=== PATIENT | male | born 1975 | race Caucasian/White ===

== ENCOUNTER → 2018-03-06 | Day surgery (SDC) | payer OTHER ==
--- NOTE | 2018-03-05 19:22 | History and Physical ---
History & Physical Date Mar 05, 2018. Chief Complaint right elbow pain History of Present Illness The patient is a 43 year old male with complaints of right elbow pain after a fall from his truck while at work on 02.26.18. He fell onto an outstretched right hand. He had elbow pain and later x-rays that noted an intra-articular radial head fx. A CT later confirmed a comminuted intra-articular fx. He was placed into a hinged elbow brace locked in 90 degrees and was referred for surgical tx. Past Medical/Surgical History Past medical hx: HTN, high cholesterol, Sleep apnea, Acid reflux, Obesity, hx of kidney stones Past surgical hx: right knee surgery in 2015, lumbar laminectomy/discectomy 1999 Social hx: Denies tobacco use, ~3 alcoholic drinks per week. Allergies Coded Allergies: Penicillins (Unverified Allergy, Unknown, UNKNOWN - CHILDHOOD ALLERGY, ) Ondansetron (Verified Adverse Reaction, Unknown, CAN'T SLEEP FOR 3 DAYS, ) Home Medications Scheduled Fish Oil (Calvin-3), 1 CAP PO QAM Hydrochlorothiazide (Hctz), 25 MG PO QAM Lisinopril (Zestril), 10 MG PO QAM Magnesium Oxide (Mg Supplement (Magnesium), 500 MG PO QAM Multivitamin (Multivitamin), 1 TAB PO QAM Omeprazole (Prilosec), 20 MG PO QAM Paroxetine (Paxil), 20 MG PO HS Rosuvastatin Calcium (Crestor), 20 MG PO QAM Scheduled PRN Oxycodone/Acetaminophen 5MG/325MG (Percocet 5MG/325MG), 1-2 TABLETS PO Q4-6H PRN for Pain Physical Examination Skin: warm/dry, no rash Eyes: normal inspection ENT: normal ENT inspection Head: normocephalic, atraumatic Neck: supple, no adenopathy, trachea midline Respiratory/Chest: lungs clear, normal breath sounds, no respiratory distress Cardiovascular: regular rate, rhythm Abdomen / GI: normal bowel sounds, non tender Extremities: + pertinent finding (Right elbow: + swelling. Tender at the radial head. No strength testing or ROM performed. NV intact RUE.) Neurologic/Psych: no motor/sensory deficits, alert, oriented x 3 Diagnosis Right elbow Intra-articular comminuted radial head fx. Right elbow coronoid process of ulna fx. Plan of Treatment Recommend an ORIF right radial head fx vs. right radial head replacement, possible closed tx coronoid process of ulna fx vs. excision of fx fragment. All potential risks, benefits, complications, alternatives, and rehab have been discussed and the patient wishes to proceed. The patient will be scheduled for 03.06.18.
[~2018-03-06] MED LIST: ACETAMINOPHEN 325 MG TAB PO PRN; ATROPINE SULFATE 0.1 MG/ML 5ML SYR IV PRN; BACITRACIN 50000 UNIT VIAL ONE; CEFAZOLIN SOD 2000MG/15 ML IV PUSH IV ONE; EpHEDrine SULFATE INJ 50 MG/ML AMP IV PRN; FENTANYL CITRATE INJ 50 MCG/1 ML 2 ML VIAL IV PRN; FENTANYL CITRATE INJ 50 MCG/1 ML 2 ML VIAL ONE; GLYCOPYRROLATE INJ 0.2 MG/ML VIAL ONE; HYDR25TA4 PO; HYDROmorphone INJ 0.5 MG/0.5 ML SYR IV PRN; KETAMINE HCL INJ 50 MG/ML 10 ML VIAL ONE; KETOROLAC TROMETHAMINE 15 MG/ML VIAL IV. PRN; LACTATED RINGER'S 1000ML 1,000 ML IV SCH; LIDOCAINE HCL 2% 2 ML VIAL (20MG/ML) ONE; LISI-461 PO; MAGN500T4 PO; MIDAZOLAM HCL 1 MG/ML 2ML VIAL ONE; MULT-506 PO; MoRPHine SULFATE 2 MG/ML CARP IV PRN; NEOSTIGMINE METHYLSULFATE 5 MG/5 ML SYR ONE; NURSING VERBAL MED ORDER ONE; OMEG10007 PO; OXYC-57 PO; OXYCODONE HCL IR 5 MG TAB (IMMEDIATE RELEASE) PO PRN; PARO1TAB27 PO; PHENYLEPHRINE 100MCG/ML 5ML SYR IV PRN; PRLSR20 PO; PROPOFOL IV EMULSION 10 MG/ML 20 ML VIAL IV ONE; ROCURONIUM BROMIDE 10 MG/ML 5 ML VIAL IV ONE; ROPIVACAINE 0.5% 5 MG/ML 30 ML VIAL ONE; ROSU20TA PO
[2018-03-06 10:10] VITALS: BP 141/91; PULSE 94; TEMP 36.3; O2SAT 98
--- NOTE | 2018-03-06 13:05 | History & Physical Bridge Note ---
H&P Re-Evaluation Bridge Note: I have examined the patient, reviewed the History & Physical and in the interval since the performance of the History & Physical I have noted the following changes of clinical significance: No changes noted
--- NOTE | 2018-03-06 15:51 | [facility] Post Operative Brief Note ---
Immediate Operative Summary Operative Date Mar 06, 2018. Pre-Operative Diagnosis Right elbow Intra-articular comminuted displaced radial head fracture. Right elbow coronoid process of ulna fracture. Post-Operative Diagnosis Right elbow Intra-articular comminuted displaced radial head fracture. Right elbow coronoid process of ulna fracture. Procedure(s) Performed Right Elbow [employer] Expl[employer] [id number] Radial Head Replacement Right Elbow Resection of Avulsion fracture coronoid process Surgeon Dr. Rainer Nazario Reimbursement Analyst Surgeon(s) Franko Bueno PA-C Estimated Blood Loss 5cc Findings Consistent with Post-Op Diagnosis Specimens a. Radial Head Drains None Anesthesia Type General Regional Complication(s) none Disposition Accompanied Pt To Recover: no Disposition: Recovery Room / PACU
--- NOTE | 2018-03-06 15:53 | DIAGNOSTIC IMAGING REPORT ---
R ELBOW 2 VIEWS HISTORY: 43 years-old Male RT ORIF VS RADIAL HEAD REPLACEMENT status post surgery of the right radial head. COMPARISON: None available TECHNIQUE: 2 spot fluoroscopic images of the right elbow were obtained utilizing 33.5 seconds fluoroscopy time FINDINGS: Images demonstrate interval placement of a prosthetic radial head which demonstrates satisfactory alignment. No periprosthetic fracture or retained foreign body. Expected postsurgical soft tissue swelling and deep tissue air about the lateral right elbow. IMPRESSION: Prosthetic radial head with satisfactory alignment. The above report was generated using voice recognition software. It may contain grammatical, syntax or spelling errors. Electronically signed by: Keith Tristan M.D. 03/06/2018 3:51 PM Dictated Date/Time: 03/06/2018 3:50 PM
--- NOTE | 2018-03-06 16:21 | Discharge Instructions ---
Discharge Instructions Date of Service Mar 06, 2018. Visit Reason for Visit: Displaced Fracture of Head of Right Radius, Initia Discharge Discharge Diagnosis / Problem: Displaced Fracture of Right Radial Head Discharge Goals Goal(s): Decrease discomfort, Improve function, Increase independence Activity Recommendations Activity Limitations: per Instructions/Follow-up section Weightbearing Status: Right non-weightbearing Anesthesia . Post Anesthesia Instructions: If you have had General Anesthesia or IV Sedation: * Do not drive today. * Resume driving when surgeon permits. * Do not make important decisions or sign legal documents today. * Call surgeon for: 1. Temperature elevations greater than 101 degrees F. 2. Uncontrollable pain. 3. Excessive bleeding. 4. Persistent nausea and vomiting. 5. Medication intolerance (nausea, vomiting or rash). * For nausea and vomiting use only clear liquids such as: tea, soda, bouillon until nausea subsides, then gradually increase diet as tolerated. * If you have any concerns or questions, call your surgeon's office. If physician is unavailable and it is an emergency, call 911 or go to the nearest emergency room. . Instructions / Follow-Up Instructions / Follow-Up ACTIVITY RECOMMENDATIONS: * Nonweightbearing on the right elbow SPECIAL CARE INSTRUCTIONS: * Keep dressing/splint clean and dry. * Your bandage should be left in place until seen back in the office. * Some drainage onto the dressing may occur. This is normal. * If the bandage feels excessively tight, you may loosen the elastic bandage. Then call the physician's office for further instructions. * If possible, keep your arm elevated above the level of your heart for the first 2 post operative days. You may use a sling if necessary. Use pillows under the elbow to keep it elevated when at rest * You should move your fingers regularly (50-100 motions per hour) unless otherwise instructed. SPECIAL PRECAUTIONS: * If you notice increased drainage, fever over 101 degrees F. or severe, unremitting pain, call your physician/office at . * You may have been prescribed pain medication. If you experience nausea and/or skin rash, discontinue this medication and contact our office for an alternative medication. FOLLOW UP VISIT: If appointment is not already scheduled: Please call [facility] to make a follow-up appointment with Dr Nazario after your surgery at . Diet Recommendations Recommended Home Diet: resume previous diet Procedures Procedures Performed: Right Elbow [employer] Explor [id number] Radial Head Replacement Right Elbow Resection of Avulsion fracture coronoid process Pending Studies Studies pending at discharge: no Medical Emergencies . Who to Call and When: Medical Emergencies: If at any time you feel your situation is an emergency, please call 911 immediately. . Non-Emergent Contact Non-Emergency issues call your: Surgeon Call Non-Emergent contact if: temperature is above 101.5, your pain is not controlled, your pain is worsening, wound has increased drainage, wound has increased redness . . "Provider Documentation" section prepared by Franko Beuno. . [place] Drug Monitoring Program Search Results: patient reviewed within database, no issues identified
--- NOTE | 2018-03-06 16:43 | Anesthesiology Progress Note ---
Anesthesia Post Op Note Date & Time Mar 06, 2018 at 16:43 Vital Signs Pain Intensity: 4 Vital Signs Past 12 Hours Date Time Temp Pulse Resp B/P (MAP) Pulse Ox O2 Delivery O2 Flow Rate FiO2 03/06/18 16:35 98 22 143/92 95 Room Air 03/06/18 16:25 85 18 156/90 96 Oxymask 10 03/06/18 16:15 74 19 170/99 99 Oxymask 10 03/06/18 16:09 36.0 75 19 163/110 96 Oxymask 10 03/06/18 10:10 36.3 94 18 141/91 (108) 98 Room Air Notes Mental Status: alert / awake / arousable, participated in evaluation Pt Amnestic to Procedure: Yes Nausea / Vomiting: adequately controlled Pain: adequately controlled Airway Patency, RR, SpO2: stable & adequate BP & HR: stable & adequate Hydration State: stable & adequate Anesthetic Complications: no major complications apparent
[2018-03-06 16:50] VITALS: BP 136/85; PULSE 85; TEMP 36.9; O2SAT 95
[2018-03-06 17:10] VITALS: BP 136/85; PULSE 85; TEMP 36.9; O2SAT 95
[2018-03-06 17:20] VITALS: BP 139/81; PULSE 89; TEMP 36.7; O2SAT 94
--- NOTE | 2018-03-06 23:26 | OPERATIVE REPORT ---
DATE OF OPERATION: 03/06/2018 PREOPERATIVE DIAGNOSES: 1. Right elbow intraarticular comminuted displaced radial head fracture. 2. Right elbow coronoid avulsion fracture. POSTOPERATIVE DIAGNOSES: 1. Right elbow intra-articular comminuted displaced radial head fracture. 2. Right elbow coronoid process avulsion fracture. PROCEDURES: 1. Right elbow radial head replacement using a [employer] Expl[employer]R radial head size 14 x 24 mm and a 7 x 26 mm stem press fit. 2. Right elbow resection coronoid process avulsion fracture. SURGEON: Rainer Nazario DO SANE RN: Franko Bueno PA-C, who was present for patient positioning, sterile prep and drape, management of retractors and instruments. He was present through the critical portions of the case including wound closure, application of sterile dressing and transport of the patient to recovery. ANESTHESIA: General with interscalene block, right upper extremity. SPECIMENS: Right radial head. DRAINS: None. COMPLICATIONS: None. BLOOD LOSS: 5 mL PERTINENT HISTORY: A 43-year-old gentleman fell on an outstretched right upper extremity. He fell from a truck. He had inability to use the right elbow. Pain and swelling, was seen in the Emergency Department. Radiographs obtained noting radial head fracture, was seen in clinic and then eventually had a CAT scan of the right elbow noting a comminuted intraarticular displaced radial head fracture. Also noted was a right elbow coronoid process avulsion fracture, the patient was then scheduled for surgery as indicated. All potential risks, benefits, complications, alternatives, rehab, potential for incomplete relief of symptoms, need for further surgery, DVT, PE, , persistent pain, swelling, scarring, weakness, neurovascular injury, wound complications, hardware failure, nonunion, malunion, bone fracture discussed with the patient. The patient decided to proceed with the procedure as indicated. DESCRIPTION OF PROCEDURE: Interscalene block was administered in the preop holding area, the patient taken to operative suite, placed supine on the operating table. After reviewing consent and identification of proper operative site, patient was anesthetized and endotracheal tube was placed followed by placement of a tourniquet high on the right upper extremity over cast padding. Right upper extremity was then sterilely prepped and draped in the usual fashion, Elevated and exsanguinated with an Esmarch bandage. Tourniquet inflated to 250 mmHg.. Next, a 15 blade scalpel was used to make an oblique incision centered over the right radial head. The incision was deepened through subcutaneous tissue. Meticulous hemostasis was achieved with electrocautery. Full thickness skin flaps were developed. The sensory cutaneous nerves were identified, freed, retracted, and protected and then the fascia was incised between the anconeus and the extensor. The interval was developed down to the level of the joint capsule and then incision was made in the joint capsule exposing the radial head. The annular ligament was then incised and marked with 2-0 Vicryl sutures, one on each limb of the annular ligament. This was retracted and protected. Next, the radial head fracture was clearly identified. Dissection was performed on the neck of the radius and stopped at the radial tuberosity. Care was taken not to dissect too far for risk of injuring radial nerve. Next, the Wright retractor was placed posterior to the radial head. The radial head was noted to be comminuted, intraarticular and displaced into at least 4 fragments with central impaction fracture. Articular surface was fragmented into multiple pieces. The head was measured approximately 14 mm from its proximal extent and then a transverse sagittal saw cut was made after placement of Wright retractors to protect the radial neck from the surrounding soft tissue and articular surfaces. The radial head was then resected and the cut was completed with an osteotome. The radial head was then reassembled on the back table, sized noted to be a 24 mm diameter head with a 14 mm neck length. At this point, the elbow joint was then copiously irrigated with sterile normal saline with bacitracin until clear. The coronoid process fracture was identified. A freer elevator was used to test stability of the fragment and this was then resected using a pituitary rongeur. It was too small to repair, but too large distally within the joint. Next, the wound was once again irrigated with sterile saline with bacitracin and then broaching was then begun with a Wright retractor used to improve visualization of the radial neck. The broach was then sized up from size 5, then 6, then 7. It was well seated. Radial head trial was then placed, reduced, and radiographs obtained noting near anatomic fit with supination and pronation and also varus and valgus stress testing performed under live fluoroscopic assistance. Next, the trial implants were removed. Both the lavage was then performed with bacitracin and sterile normal saline until clear, followed by implantation of the final radial stem and then the radial head fixed to the stem with a set screw. Next, a range of motion was performed with full supination, full pronation, full flexion 135 degrees and full extension. Final radiographs were obtained in AP, lateral, and then supination and pronation views and varus and valgus stress testing was performed. The elbow was noted to be stable. Next, the annular ligament was then repaired with interrupted 2-0 FiberWire suture followed by closure of the capsule with 2-0 FiberWire suture. This was then followed by closure of the medial joint capsule with #1 Vicryl interrupted [id number] sutures and closure of the fascia with a running 2-0 Vicryl. The dermis was closed using buried interrupted 3-0 Vicryl and the skin was closed using nylon sutures. A sterile compressive dressing was applied with the elbow in neutral position with the hand in neutral position overwrapped with an Speedy wrap. The tourniquet was released. The patient was awakened and taken to recovery in stable condition. I attest to the content of the Intraoperative Record and any orders documented therein. Any exception s are noted below.
== END | disposition home or self-care (01) ==
LOC: C.ACU 09:39
PROVIDERS: ATTEND Orthopaedic Surgery Sports Medicine
DX: S52.121A Displaced fracture of head of right radius, initial encounter for closed fracture (principal); S52.041A Displaced fracture of coronoid process of right ulna, initial encounter for closed fracture; V59.9XXA Occupant (driver) (passenger) of pick-up truck or van injured in unspecified traffic accident, initial encounter; G47.33 Obstructive sleep apnea (adult) (pediatric); I10 Essential (primary) hypertension; E66.9 Obesity, unspecified; E78.00 Pure hypercholesterolemia, unspecified; Z88.0 Allergy status to penicillin; Z98.890 Other specified postprocedural states; Z79.899 Other long term (current) drug therapy